=== PATIENT | male | born 1970 | race Caucasian/White ===

== ENCOUNTER 2017-05-17 14:36 | Emergency (ER) | payer MEDICAID ==
[2017-05-17 14:42] VITALS: BP 140/76; BMI 28.8
[2017-05-17] MEDS ORDERED: DECADRON INJ IVP ONE (14:46)
[2017-05-17] MEDS ORDERED: TORADOL 30 MG VIAL IVP ONE (14:46)
[2017-05-17] MEDS ORDERED: NORFLEX INJ IVP ONE (14:46)
--- NOTE | 2017-05-17 14:50 | DR.GENAD ---
HPI - PCP Primary Care Physician: mayi - HPI Comment HPI Comment: HISTORY BELOW. - Complaint/Symptoms Chief Complaint Doctors Comments: LOW BACK PAIN OVER 2 WEEKS AGO. EVALUATED IN [facility] 3 DAYS AGO. MED GIVEN NOT CONTROLLING HIS PAIN. NO NEW INJURY. Chief Complaint:: patient was brought in by [facility]. patient stated he jumped a ditch 2 weeks ago and her aggeravited his back again. he was seen in [facility] 3 days ago and was given t3 for pain, he stated nothing is helping his pain and he stated he cant walk. - Nurses notes reviewed Nurses Notes Review: Yes - Source History Provided: EMS - Mode of Arrival Mode of Arrival: Ambulatory - Timing Onset of Chief Complaint: 05/03/17 Came on: Suddenly - Duration Duration: Constant Duration: Days - Severity Severity: Moderate PMH - PMH Past Medical History: Yes Past Medical History: Arthritis Past Surgical History: Yes Surgical History: Unknown - Family History History of Family Medical Conditions: No - Social History Does patient currently use any type of tobacco product: Yes Have you used tobacco products in the last 12 months: Yes Type of Tobacco Use: Cigarettes How many years tobacco product used: 30 Does any household member use tobacco: No Alcohol Use: None Do you use any recreational Drugs:: Yes (thc) Lives With: Family Lives Where: Home - infectious screening In the last 2 months have you had wt loss of >10#?: NO Have you had fever, night sweats or hemotysis?: No Have you traveled outside the country in the last 6 months?: No Isolation: Standard ROS - Review of Systems Constitutional: No Symptoms Reported Eyes: No Symptoms Reported ENTM: No Symptoms Reported Respiratoy: No Symptoms Reported Cardiovascular: No Symptoms Reported Gastrointestinal/Abdominal: No Symptoms Reported Genitourinary: No Symptoms Reported Neurological: No Symptoms Reported Musculoskeletal: Back Pain Integumentary: No Symptoms Reported Hematologic/Lymphatic: No Symptoms Reported Endocrine: No Symptoms Reported All Other Systems: Reviewed and Negative PE - Vital Signs Vitals: Temperature 98.6 F Pulse Rate 80 Respiratory Rate 16 Blood Pressure 140/76 O2 Sat by Pulse Oximetry 98 - General Limitations: No Limitations General Appearance: Alert - Head Head Exam: Normal Inspection - Eyes Eye exam: Normal Appearance - ENT ENT Exam: Normal External Ear Exam External Ear Exam: Normal External Inspection TM/Canal Exam: Bilateral Normal Nose Exam: Normal Nose Exam Mouth Exam: Normal Inspection Throat Exam: Normal Inspection - Neck Neck Exam: Trachea Midline - Chest Chest Inspection: Symmetric Chest Wall Rise - Respiratory Respiratory Exam: Normal Lung Sounds Bilat Respiratory Exam: Bilateral Clear to Auscultation - Cardiovascular Cardiovascular Exam: Regular Rate, Normal Rhythm, Normal Heart Sounds - Abdominal Exam Abdominal Exam: Normal Bowel Sounds, Soft. negative: Tenderness - Back Back Exam: Paraspinal Tenderness, Vertebral Tenderness (TENDERNESS LOWER SPINE.) - Neurologic Neurological Exam: Alert, Oriented X3 - Psychiatric Psychiatric Exam: Normal Affect, Normal Mood - Skin Skin Exam: Normal Color [facility] - Differential Diagnosis Differential Diagnosis: LOW BACK SPRAIN AND STRAIN. Course - Treatment Treatment: SEE ORDERS - Education/Counseling Education/Counseling: Patient, Education Educated On: Diagnosis, Needs for Follow Up - Diagnosis Discharge Problem: Back pain Qualifiers: Back pain location: low back pain Chronicity: acute Back pain laterality: bilateral Sciatica presence: without sciatica Qualified Code(s): M54.5 - Low back pain - Discharge Plan Disposition: 01 HOME, SELF-CARE Condition: Stable Prescriptions: Cyclobenzaprine HCl [FLEXERIL 10 MG *] 10 mg PO TID PRN #20 tab PRN Reason: Dexamethasone [Decadron Tab] 4 mg PO QAM #7 tab Ibuprofen [Motrin Tab 800 mg] 800 mg PO Q8H PRN #20 tab PRN Reason: Pain/Inflammation - Follow ups/Referrals Follow ups/Referrals: [facility],None [Primary Care Provider] - 3 days - Instructions Instructions: Back Pain, Adult, [id number] Additional Instructions: RETURN TO ED IF WORSE.
[2017-05-17] MEDS ORDERED: TORADOL 30 MG VIAL ONE (14:58)
[2017-05-17] MEDS ORDERED: DECADRON INJ ONE (14:59)
[2017-05-17] MEDS ORDERED: NORFLEX INJ ONE (14:59)
[2017-05-17] MEDS ORDERED: NORFLEX INJ IM ONE (15:00)
== END 2017-05-17 17:27 | disposition home or self-care (01) ==
LOC: ER 14:47
DX: M54.5 Low back pain (principal)
CPT/HCPCS: 96372; 99282; J1100; J1885; J2360